=== PATIENT | male | born 1990 | race Hispanic/Latino ===

== ENCOUNTER 2020-09-04 10:12 | Emergency (ER) | payer BC, SELFPAY ==
[2020-09-04] MEDS ORDERED: Azithromycin 250 MG TAB ONE (11:29)
--- NOTE | 2020-09-04 12:10 | RAD ---
PORTABLE CHEST: DATE: 09/04/2020. FINDINGS: An AP portable film at 1050 is presented with no prior films available for comparison. The heart is normal in size. There is no vascular congestion, edema, or pleural effusion. No major lobar infiltrate was seen. There were 1 or 2 linear streaks in the left base that were equivocal in significance, differential including atelectasis, scarring, or minimal acute infiltrate. Depending u adriana the progress of his symptoms, followup might be needed. IMPRESSION: No definite acute findings. Possible very minimal infiltrates in the left base. Consider followup i f symptoms worsen. POS: HOME
[2020-09-04 18:24] LABS: SARS-CoV-2 MS2 Positive; SARS-CoV-2 N Gene Positive; SARS-CoV-2 S Gene Positive; SARS-CoV-2 by NAA DETECTED (NotDetected); SARS-CoV-2 orf1ab Positive
== END 2020-09-04 11:10 | disposition home or self-care (01) ==
LOC: BURERS 10:12
DX: U07.1 COVID-19 (principal)
CPT/HCPCS: 71045; 87635; U0003